=== PATIENT | male | born 1960 | race Caucasian/White ===

== ENCOUNTER 2018-01-06 16:08 | Emergency (ER) | payer BC ==
[~2018-01-06] VITALS: Ht 177.8 cm; Wt 71.3 kg
[2018-01-06] MEDS ORDERED: OMNIPAQUE 350 MG/ML, 100ML BOTTLE ONE (16:57)
[2018-01-06] MEDS ORDERED: METHOCARBAMOL 1,000 MG in DEXTROSE 5% 100 ML IV ONE (17:00)
[2018-01-06] MEDS ORDERED: KETOROLAC 30 MG/1 ML IVPush ONE (17:00)
[2018-01-06] MEDS ORDERED: KETOROLAC 30 MG/1 ML ONE (17:05)
[2018-01-06 17:30] LABS: BASOPHILS # (AUTO) 0.04 x10^3/uL (0-0.1); BASOPHILS % (AUTO) 1 % (0-1); EOSINOPHILS # (AUTO) 0.04 x10^3/uL (0-0.4); EOSINOPHILS % (AUTO) 1 % (1-7); LYMPHOCYTES # (AUTO) 1.66 x10^3/uL (1-3.4); LYMPHOCYTES % (AUTO) 23 % (22-44); MD NO; MEAN CORPUSCULAR HEMOGLOBIN 33.9 pg (27.5-34.5); MEAN CORPUSCULAR HGB CONC 35.1 g/dL (33.2-36.2); MEAN CORPUSCULAR VOLUME 96.8 fL (81-97); MONOCYTES # (AUTO) 0.59 x10^3/uL (0.2-0.8); MONOCYTES % (AUTO) 8 % (2-9); NEUTROPHILS # (AUTO) 5.01 x10^3/uL (1.8-6.8); NEUTROPHILS % (AUTO) 68 % (42-75); PLATELET COUNT 196 x10^3/uL (130-400); RED BLOOD COUNT 4.66 x10^6/uL (4.38-5.82); RED CELL DISTRIBUTION WIDTH 12.2 % (9.4-14.8)
[2018-01-06 17:55] LABS: ANION GAP 8 mmol/L (5-15); CALCIUM 8.6 mg/dL (8.5-10.1); CHLORIDE 103 mmol/L (98-107); CREATININE 0.96 mg/dL (0.7-1.3)
[2018-01-06] MEDS ORDERED: ONDANSETRON ODT 4 MG ONE (18:33)
[2018-01-06] MEDS ORDERED: MORPHINE SULFATE 4 MG/ML, 1ML ONE (18:33)
[2018-01-06] MEDS ORDERED: LABETALOL 5MG/ML, 20ML ONE (18:59)
[2018-01-06 19:00] LABS: INTERNATIONAL NORMALIZED RATIO 1.03 (0.93-1.1); PROTHROMBIN TIME 10.6 Seconds (9.6-11.5)
[2018-01-06] MEDS ORDERED: LABETALOL 5MG/ML, 20ML IVPush ONE (19:00)
[2018-01-06] MEDS ORDERED: ONDANSETRON ODT 4 MG PO ONE (19:00)
[2018-01-06] MEDS ORDERED: MORPHINE SULFATE 4 MG/ML, 1ML IVPush ONE (19:00)
[2018-01-06 19:02] VITALS: BP 182/82
== END 2018-01-06 19:23 | disposition short-term general hospital (02) ==
LOC: ED 18:02
DX: I60.9 Nontraumatic subarachnoid hemorrhage, unspecified (principal); E11.9 Type 2 diabetes mellitus without complications
CPT/HCPCS: 36415; 70450; 70496; 70498; 80048; 85025; 85610; 85730; 96365; 96375; 99291; J1885; J2800; Q0162; Q9967